=== PATIENT | female | born 1980 | race African-American/Black ===

== ENCOUNTER 2016-10-19 20:50 | Emergency (ER) | payer MEDICAID, OTHER ==
[~2016-10-19] VITALS: Ht 177.8 cm; Wt 127.0 kg
[2016-10-19] MEDS ORDERED: KETOROLAC TROMETHAMINE INJ 30 MG/ML VIAL IV ONE (22:30)
[2016-10-19] MEDS ORDERED: IV NS 0.9% 500 ML BAG IV ONE (22:30)
[2016-10-19] MEDS ORDERED: ONDANSETRON HCL/PF 4 MG/2 ML VIAL IVP ONE (22:30)
[2016-10-19] MEDS ORDERED: KETOROLAC TROMETHAMINE 15 MG/ML VIAL ONE (22:33)
[2016-10-19] MEDS ORDERED: ONDANSETRON HCL/PF 4 MG/2 ML VIAL ONE (22:33)
[2016-10-19 22:39] LABS: BASOPHILS % (AUTO) 0.2 % (0.0-2.0); DIFF TOTAL % 100 %; EOSINOPHILS % (AUTO) 0.1 % (0.0-6.0); HEMATOCRIT 42 % (33-45); HEMOGLOBIN 13.8 g/dL (11.5-14.8); LYMPHOCYTES # (AUTO) 2.1 /CMM (0.8-4.8); LYMPHOCYTES % (AUTO) 13.8 % (20.0-44.0); MEAN CORPUSCULAR HEMOGLOBIN 30 PG (26.0-33.0); MEAN CORPUSCULAR HGB CONC 33 g/dl (31.0-36.0); MEAN CORPUSCULAR VOLUME 91 fL (82-100); MONOCYTES # (AUTO) 0.6 /CMM (0.1-1.30); NEUTROPHILS # (AUTO) 12.2 /CMM (1.8-8.9); NEUTROPHILS % (AUTO) 81.9 % (43.0-81.0); PLATELET COUNT (AUTO) 196 /CMM (150-450); RED BLOOD CELL COUNT(AUTO) 4.57 MIL/uL (4.0-5.2); WHITE BLOOD COUNT (AUTO) 14.9 K/uL (4.3-11.0)
[2016-10-19 22:40] LABS: KETONES,URINE NEGATIVE (NEGATIVE); LEUKOCYTE ESTERASE ,URINE 1+ (NEGATIVE)
[2016-10-19 22:46] LABS: ADD UA MICROSCOPIC YES
[2016-10-19 22:48] LABS: CALCIUM, SERUM 8.6 mg/dL (8.5-10.1); CREATININE 0.9 mg/dL (0.6-1.3); POTASSIUM 3.6 mmol/L (3.5-5.1)
[2016-10-19 22:54] LABS: ADD URINE CULTURE YES; RBC,URINE 0-2 /HPF (0-2); WBC,URINE 81-100 /HPF (0-3)
[2016-10-19 22:55] LABS: ALBUMIN 3.3 g/dL (3.4-5.0); BILIRUBIN,DIRECT 0.1 mg/dL (0.0-0.2); BILIRUBIN,TOTAL 0.6 mg/dL (0.2-1.0); INDIRECT BILIRUBIN 0.5 mg/dL (0.0-1.1); TOTAL PROTEIN, SERUM 8.1 g/dL (6.4-8.2)
[2016-10-20] MEDS ORDERED: LEVOFLOXACIN (750 MG) 750 MG TABLET ONE (01:03)
[2016-10-20 01:09] VITALS: BP 133/70
[2016-10-20] MEDS ORDERED: LEVOFLOXACIN (750 MG) 750 MG TABLET PO SCH (01:30)
== END 2016-10-20 01:09 | disposition home or self-care (01) ==
LOC: ER 20:58
DX: N39.0 Urinary tract infection, site not specified (principal); N12 Tubulo-interstitial nephritis, not specified as acute or chronic; F17.210 Nicotine dependence, cigarettes, uncomplicated; Z88.6 Allergy status to analgesic agent
CPT/HCPCS: 36415; 80048-TC; 80076-TC; 81000-TC; 83690-TC; 84703-TC; 85025-TC; 87086-TC; 87186-TC; A4606; J1885; J2405; Z7610

== ENCOUNTER 2017-02-07 19:00 | Emergency (ER) | payer MEDICAID, OTHER ==
[~2017-02-07] VITALS: Ht 172.7 cm; Wt 136.1 kg
--- NOTE | 2017-02-07 19:25 | NUR ---
TO BED 10 A 37 YO FEMALE BIBSELF WITH C/O RIGHT FLANK PAIN X 3 MONTHS PT DENIES INJURY OR TRAUMA. PER PATIENT SHE HAD THE SAME BEFORE AND WAS DIAGNOSED WITH KIDNEY INFECTION. PATIENT IS AAOX4, AMBULATORY. AFEBRILE. VSS. NO S/S OF ACUTE DISTRESS. INITIATED COMFORT MEASURES. AWAITING FOR ER MD MICHELE.
[2017-02-07 19:57] LABS: APPEARANCE,URINE Clear (CLEAR); BILIRUBIN,URINE Negative (NEGATIVE); BLOOD, URINE Trace-intact Ery/uL (NEGATIVE); COLOR,URINE Yellow (YELLOW); KETONES,URINE Negative (NEGATIVE); LEUKOCYTE ESTERASE ,URINE Negative (NEGATIVE); NITRITE, URINE Negative (NEGATIVE); PH,URINE 5.5 (5.0-8.0); PROTEIN,URINE Negative (NEGATIVE); UGLUCOSE Negative (NEGATIVE); UROBILINOGEN,URINE 0.2 EU/dL (0.2)
[2017-02-07 20:01] LABS: PREGNANCY TEST URINE QUAL NEGATIVE (NEGATIVE)
[2017-02-07 20:11] LABS: ADD URINE CULTURE NO; BACTERIA,URINE Few /HPF (None Seen); MUCUS,URINE Moderate /LPF (None Seen); SQUAMOUS EPITHELIAL CELL,UR Moderate /HPF (None Seen); URINE AMORPHOUS URATE Few /HPF (None Seen)
--- NOTE | 2017-02-07 20:42 | NUR ---
Patient discharged to home in stable condition. Written and verbal after care instructions given. Patient verbalizes understanding of instruction. Patient is ambulatory with steady gait.
[2017-02-07 20:53] VITALS: BP 118/80
== END 2017-02-07 20:55 | disposition home or self-care (01) ==
LOC: ER 19:01
DX: M54.9 Dorsalgia, unspecified (principal); G89.29 Other chronic pain; F17.200 Nicotine dependence, unspecified, uncomplicated; Z88.6 Allergy status to analgesic agent
CPT/HCPCS: 81001; 84703; 99283; A4606; Z7610; 81000-TC

== ENCOUNTER 2017-08-07 23:45 | Emergency (ER) | payer OTHER ==
[~2017-08-07] VITALS: Ht 170.2 cm; Wt 145.1 kg
--- NOTE | 2017-08-08 | NUR ---
PT BIBSELF C/O RASH TO BUE X SUNDAY, NOW SPREAD THROUGHOUT BODY, TOOK BENADRYL W/ NO RELIEF, TAKING TRAMADOL FOR KNEE PAIN. PT AOX3 RR EVEN AND UNLABORED. NO SOB NOTED. NAD NOTED. NO NVD AT THIS TIME. PT GOWNED AND PLACED ON MONITOR. TREE INSPECTOR DEGRASSI AT BEDSIDE FOR EVAL.
[2017-08-08 00:35] LABS: BASOPHILS # (AUTO) 0.1 /CMM (0.0-0.2); BASOPHILS % (AUTO) 0.7 % (0.0-2.0); EOSINOPHILS # (AUTO) 0.1 /CMM (0.0-0.7); HEMATOCRIT 44 % (33-45); HEMOGLOBIN 14.4 g/dL (11.5-14.8); LYMPHOCYTES # (AUTO) 3.3 /CMM (0.8-4.8); LYMPHOCYTES % (AUTO) 41.8 % (20.0-44.0); MEAN CORPUSCULAR HEMOGLOBIN 30 PG (26.0-33.0); MEAN CORPUSCULAR HGB CONC 33 g/dl (31.0-36.0); MEAN CORPUSCULAR VOLUME 91 fL (82-100); MONOCYTES # (AUTO) 0.2 /CMM (0.1-1.30); MONOCYTES % (AUTO) 2.8 % (2.0-12.0); NEUTROPHILS # (AUTO) 4.2 /CMM (1.8-8.9); NEUTROPHILS % (AUTO) 53.7 % (43.0-81.0); PLATELET COUNT (AUTO) 166 /CMM (150-450); RDW COEFFICIENT OF VARIATION 14.3 (11.5-15.0); RED BLOOD CELL COUNT(AUTO) 4.85 MIL/uL (4.0-5.2); WHITE BLOOD COUNT (AUTO) 7.9 K/uL (4.3-11.0)
[2017-08-08 00:46] LABS: C-REACTIVE PROTEIN 8.5 mg/dL (0.0-0.9)
[2017-08-08 00:47] LABS: CALCIUM, SERUM 8.8 mg/dL (8.5-10.1); CREATININE 0.9 mg/dL (0.6-1.3); POTASSIUM 3.4 mmol/L (3.5-5.1)
[2017-08-08 00:53] LABS: ALBUMIN 2.9 g/dL (3.4-5.0); BILIRUBIN,TOTAL 0.4 mg/dL (0.2-1.0); TOTAL PROTEIN, SERUM 7.7 g/dL (6.4-8.2)
--- NOTE | 2017-08-08 01:07 | NUR ---
STONE CIRCULAR SAWYER DEGRASSE AT BEDSIDE SPEAKING TO PT REGARDING RESULTS.
[2017-08-08] MEDS ORDERED: predniSONE 20 MG TABLET ONE (01:16)
[2017-08-08 01:18] VITALS: BP 110/70
--- NOTE | 2017-08-08 01:18 | NUR ---
Patient discharged to home in stable condition. Written and verbal after care instructions given. Patient verbalizes understanding of instruction. ambulatory with a steady gait
[2017-08-08] MEDS ORDERED: predniSONE 20 MG TABLET PO ONE (01:30)
== END 2017-08-08 01:19 | disposition home or self-care (01) ==
LOC: ER 23:45 → EDBD 23:45 → ER 08-08 01:19
DX: I77.6 Arteritis, unspecified (principal); F10.10 Alcohol abuse, uncomplicated; F17.200 Nicotine dependence, unspecified, uncomplicated; Z88.6 Allergy status to analgesic agent
CPT/HCPCS: 36415; 80053; 85025; 85652; 86140; 99284; A4606; J7512; Z7610

== ENCOUNTER 2017-08-11 05:00 | Emergency (ER) | payer OTHER ==
[~2017-08-11] VITALS: Ht 170.2 cm; Wt 145.1 kg
--- NOTE | 2017-08-11 05:55 | NUR ---
PT AMBULATORY TO ER BED 7, PT STATES SHE WAS SEEN IN THE ER A FEW DAYS AGO FOR A SKIN RASH. PT STATES THAT THE RASH IS NOW WORSE. PT STATES THAT THE RASH MACE PT WAS GIVEN A RX FOR PREDNISONE 50MG DAILY X 4 DAYS. PT VSS/RESP EVEN UNLABORED/NAD NOTED/AOX4. AWAITING MD MICHELE.
--- NOTE | 2017-08-11 06:04 | NUR ---
AT BEDSIDE FOR EVAL.
--- NOTE | 2017-08-11 06:39 | NUR ---
LAB AT BEDSIDE.
[2017-08-11 06:47] LABS: BASOPHILS % (AUTO) 0.3 % (0.0-2.0); HEMATOCRIT 37 % (33-45); HEMOGLOBIN 12.2 g/dL (11.5-14.8); LYMPHOCYTES # (AUTO) 1.7 /CMM (0.8-4.8); LYMPHOCYTES % (AUTO) 24.2 % (20.0-44.0); MEAN CORPUSCULAR HEMOGLOBIN 30 PG (26.0-33.0); MEAN CORPUSCULAR HGB CONC 33 g/dl (31.0-36.0); MEAN CORPUSCULAR VOLUME 91 fL (82-100); MONOCYTES # (AUTO) 0.3 /CMM (0.1-1.30); MONOCYTES % (AUTO) 4.1 % (2.0-12.0); NEUTROPHILS % (AUTO) 71.4 % (43.0-81.0); PLATELET COUNT (AUTO) 197 /CMM (150-450); RDW COEFFICIENT OF VARIATION 14.4 (11.5-15.0); RED BLOOD CELL COUNT(AUTO) 4.08 MIL/uL (4.0-5.2)
[2017-08-11] MEDS ORDERED: predniSONE 20 MG TABLET PO ONE (07:00)
[2017-08-11] MEDS ORDERED: predniSONE 20 MG TABLET ONE (07:07)
--- NOTE | 2017-08-11 07:21 | NUR ---
Patient discharged to home in stable condition. Written and verbal after care instructions given. Patient verbalizes understanding of instruction. Pt ambulatory with a steady gait.
[2017-08-11 07:22] VITALS: BP 124/74
== END 2017-08-11 07:24 | disposition home or self-care (01) ==
LOC: ER 05:04
DX: I77.6 Arteritis, unspecified (principal); F17.200 Nicotine dependence, unspecified, uncomplicated; Z98.51 Tubal ligation status; Z88.6 Allergy status to analgesic agent
CPT/HCPCS: 36415; 85025; 99283; A4606; J7512; Z7610

== ENCOUNTER 2018-05-23 11:30 | Emergency (ER) | payer SELFPAY ==
[~2018-05-23] VITALS: Ht 175.3 cm; Wt 142.0 kg
[2018-05-23 11:49] VITALS: BP 137/86
[2018-05-23 12:01] LABS: APPEARANCE,URINE Clear (CLEAR); BILIRUBIN,URINE Negative (NEGATIVE); BLOOD, URINE Moderate Ery/uL (NEGATIVE); COLOR,URINE Yellow (YELLOW); KETONES,URINE Negative (NEGATIVE); LEUKOCYTE ESTERASE ,URINE Negative (NEGATIVE); NITRITE, URINE Negative (NEGATIVE); PROTEIN,URINE Negative (NEGATIVE); UGLUCOSE Negative (NEGATIVE); UROBILINOGEN,URINE 0.2 EU/dL (0.2)
[2018-05-23 12:05] LABS: BACTERIA,URINE Few /HPF (None Seen); SQUAMOUS EPITHELIAL CELL,UR Few /HPF (None Seen)
== END 2018-05-23 13:33 | disposition home or self-care (01) ==
LOC: ER 11:33
DX: J30.9 Allergic rhinitis, unspecified (principal); F10.10 Alcohol abuse, uncomplicated; F17.200 Nicotine dependence, unspecified, uncomplicated; Z88.6 Allergy status to analgesic agent; Y90.9 Presence of alcohol in blood, level not specified
CPT/HCPCS: 71045; 81001; 99285; A4606; Z7610; 81000-TC

== ENCOUNTER 2018-11-25 11:17 | Emergency (ER) | payer MEDICAID, OTHER ==
[~2018-11-25] VITALS: Ht 172.7 cm; Wt 142.9 kg
[2018-11-25 11:17] VITALS: BP 131/77
--- NOTE | 2018-11-25 11:35 | NUR ---
SEEN AND EXAMINED BY DR. STEINER.
== END 2018-11-25 11:56 | disposition home or self-care (01) ==
LOC: ER 11:22
DX: R10.84 Generalized abdominal pain (principal); F17.200 Nicotine dependence, unspecified, uncomplicated; Z98.890 Other specified postprocedural states; Z88.6 Allergy status to analgesic agent
CPT/HCPCS: Z7502

== ENCOUNTER 2019-03-30 23:53 | Emergency (ER) | payer MEDICAID ==
[~2019-03-30] VITALS: Ht 170.2 cm; Wt 145.1 kg
[2019-03-30 23:58] VITALS: BP 145/94
--- NOTE | 2019-03-30 23:58 | NUR ---
PT BIBSELF C/O BURNING/FREQUENCY/URGENCY ON URINATION X 1 WEEK. PT IS AAOX4, NOT IN RESPIRATORY DISTRESS, V/S STABLE, KEPT RESTED AND COMFORTABLE, WILL CONTINUE TO MONITOR.
--- NOTE | 2019-03-31 00:12 | NUR ---
URINE SPECIMEN COLLECTED AND SENT TO LAB.
[2019-03-31 00:49] LABS: APPEARANCE,URINE Clear (CLEAR); BILIRUBIN,URINE Negative (NEGATIVE); BLOOD, URINE Small Ery/uL (NEGATIVE); COLOR,URINE Yellow (YELLOW); KETONES,URINE Negative (NEGATIVE); LEUKOCYTE ESTERASE ,URINE Trace (NEGATIVE); NITRITE, URINE Negative (NEGATIVE); PH,URINE 5.5 (5.0-8.0); PROTEIN,URINE Negative (NEGATIVE); UGLUCOSE Negative (NEGATIVE); UROBILINOGEN,URINE 0.2 EU/dL (0.2)
[2019-03-31 01:13] LABS: BACTERIA,URINE Few /HPF (None Seen); SQUAMOUS EPITHELIAL CELL,UR Few /HPF (None Seen)
--- NOTE | 2019-03-31 01:13 | NUR ---
Patient discharged to home in stable condition. Written and verbal after care instructions given. Patient verbalizes understanding of instruction.
== END 2019-03-31 01:15 | disposition home or self-care (01) ==
LOC: ER 23:56
DX: N39.0 Urinary tract infection, site not specified (principal); F10.10 Alcohol abuse, uncomplicated; F17.200 Nicotine dependence, unspecified, uncomplicated; Y90.9 Presence of alcohol in blood, level not specified; Z88.6 Allergy status to analgesic agent; Z98.51 Tubal ligation status
CPT/HCPCS: 81000-TC; 84703-TC

== ENCOUNTER 2019-12-06 12:37 | Emergency (ER) | payer SELFPAY ==
[~2019-12-06] VITALS: Ht 170.2 cm; Wt 149.7 kg
--- NOTE | 2019-12-06 12:44 | NUR ---
BIB SELF C/O PAINFUL URINATION STARTED 4 DAYS AGO. TO ER BED 10, HOOKED TO MONITOR, CHANGED TO HOSP GOWN, WARM BLABKET PROVIDED, PATIENT AOx4 , BREATHING EVEN AND UNLABORED. AWAITING MD MICHELE.
--- NOTE | 2019-12-06 12:48 | NUR ---
URINE SPECIMEN COLLECTED AND SENT TO LAB.
--- NOTE | 2019-12-06 12:50 | NUR ---
DR RODRIGUEZ AT BEDSIDE
[2019-12-06] MEDS ORDERED: CEFTRIAXONE 500 MG VIAL IM ONE (13:30)
[2019-12-06] MEDS ORDERED: AZITHROMYCIN 250 MG TABLET PO ONE (13:30)
[2019-12-06] MEDS ORDERED: AZITHROMYCIN 250 MG TABLET ONE (13:40)
[2019-12-06] MEDS ORDERED: CEFTRIAXONE 500 MG VIAL ONE (13:40)
[2019-12-06] MEDS ORDERED: LIDOCAINE /MPF 1% VIAL 5 ML VIAL ONE (13:41)
[2019-12-06 13:51] LABS: APPEARANCE,URINE CLEAR (CLEAR); BILIRUBIN,URINE NEGATIVE (NEGATIVE); BLOOD, URINE MODERATE Ery/uL (NEGATIVE); COLOR,URINE YELLOW (YELLOW); KETONES,URINE NEGATIVE (NEGATIVE); LEUKOCYTE ESTERASE ,URINE TRACE (NEGATIVE); NITRITE, URINE POSITIVE (NEGATIVE); PROTEIN,URINE NEGATIVE (NEGATIVE); UGLUCOSE NEGATIVE (NEGATIVE); UROBILINOGEN,URINE 0.2 EU/dL (0.2)
[2019-12-06 14:06] LABS: BACTERIA,URINE Many /HPF (None Seen); RBC,URINE 0-2 /HPF (0-2); SQUAMOUS EPITHELIAL CELL,UR Few /HPF (None Seen)
[2019-12-06 14:34] VITALS: BP 121/68
--- NOTE | 2019-12-06 14:34 | NUR ---
Patient discharged to home in stable condition. Written and verbal after care instructions given. Patient verbalizes understanding of instruction.
== END 2019-12-06 14:35 | disposition home or self-care (01) ==
LOC: ER 12:40
DX: N39.0 Urinary tract infection, site not specified (principal); F17.200 Nicotine dependence, unspecified, uncomplicated; Z98.890 Other specified postprocedural states; Z88.6 Allergy status to analgesic agent
CPT/HCPCS: 81001; 87086; 87491; 87591; 96372; 99283; J0696; J3490; 81000-TC; 87186-TC

== ENCOUNTER 2020-04-20 19:16 | Emergency (ER) | payer MEDICAID ==
[~2020-04-20] VITALS: Ht 172.7 cm; Wt 145.1 kg
--- NOTE | 2020-04-20 19:38 | NUR ---
PT AAOX4. AMBULATORY WITH STEADY GAIT. BIBSELF C/O BLADDER PAIN X4 DAYS +FREQUENT URINATION. PT STATED SHE HAS A HARD TIME PEEING. PLACED ON MONITOR AND PULSE OX. AT BEDSIDE FOR EVAL. AWAITING ORDERS. URINE SENT TO LAB.
[2020-04-20] MEDS ORDERED: ACETAMINOPHEN ES 500 MG TABLET ONE (19:43)
[2020-04-20 19:44] LABS: APPEARANCE,URINE Cloudy (CLEAR); BILIRUBIN,URINE SMALL (NEGATIVE); BLOOD, URINE Moderate Ery/uL (NEGATIVE); COLOR,URINE Yellow (YELLOW); KETONES,URINE Trace (NEGATIVE); LEUKOCYTE ESTERASE ,URINE Moderate (NEGATIVE); NITRITE, URINE Positive (NEGATIVE); PH,URINE 5.5 (5.0-8.0); PROTEIN,URINE 100 mg/dl (NEGATIVE); UGLUCOSE Negative (NEGATIVE)
[2020-04-20 20:00] LABS: WBC,URINE 21-50 /HPF (0-3)
[2020-04-20] MEDS ORDERED: ACETAMINOPHEN ES 500 MG TABLET PO ONE (20:00)
[2020-04-20 20:01] LABS: BACTERIA,URINE Many /HPF (None Seen); SQUAMOUS EPITHELIAL CELL,UR Few /HPF (None Seen)
[2020-04-20] MEDS ORDERED: CEPHALEXIN MONOHYDRATE 500 MG CAPSULE PO ONE ×2 (20:14→20:30)
--- NOTE | 2020-04-20 20:21 | NUR ---
Patient discharged to home in stable condition. Written and verbal after care instructions given. Patient verbalizes understanding of instruction and RX. Pt ambualted with steady gait. vss.
[2020-04-20 20:22] VITALS: BP 110/72
== END 2020-04-20 20:23 | disposition home or self-care (01) ==
LOC: ER 19:20
DX: N39.0 Urinary tract infection, site not specified (principal); E66.01 Morbid (severe) obesity due to excess calories; Z68.42 Body mass index [BMI] 45.0-49.9, adult; Z98.51 Tubal ligation status; Z88.6 Allergy status to analgesic agent
CPT/HCPCS: 81000-TC; 87086-TC; 87186-TC

== ENCOUNTER 2021-09-10 15:45 | Emergency (ER) | payer MEDICAID, OTHER ==
[~2021-09-10] VITALS: Ht 170.2 cm; Wt 154.2 kg
[2021-09-10 15:58] VITALS: BP 118/68
[2021-09-10] MEDS ORDERED: DIPHENHYDRAMINE HCL 12.5 MG/5 ML UDC PO ONE (16:30)
[2021-09-10] MEDS ORDERED: predniSONE 20 MG TABLET PO ONE (16:30)
[2021-09-10] MEDS ORDERED: FAMOTIDINE (20 MG) 20 MG TABLET PO ONE (16:30)
[2021-09-10] MEDS ORDERED: predniSONE 20 MG TABLET ONE (16:43)
[2021-09-10] MEDS ORDERED: FAMOTIDINE (20 MG) 20 MG TABLET ONE (16:43)
[2021-09-10] MEDS ORDERED: diphenhydrAMINE HCL 25 MG CAPSULE ONE (16:43)
[2021-09-10 16:46] LABS: BILIRUBIN,URINE NEGATIVE (NEGATIVE); COLOR,URINE YELLOW (YELLOW); LEUKOCYTE ESTERASE ,URINE NEGATIVE (NEGATIVE); NITRITE, URINE NEGATIVE (NEGATIVE); PROTEIN,URINE NEGATIVE (NEGATIVE); UGLUCOSE NEGATIVE (NEGATIVE); UROBILINOGEN,URINE 0.2 EU/dL (0.2)
[2021-09-10 16:57] LABS: BACTERIA,URINE Few /HPF (None Seen); SQUAMOUS EPITHELIAL CELL,UR Few /HPF (None Seen); WBC,URINE 0-2 /HPF (0-3)
[2021-09-10] MEDS ORDERED: PRED20TA PO (17:30)
[2021-09-10] MEDS ORDERED: FAMO-131 PO (17:30)
[2021-09-10] MEDS ORDERED: DIPH25CA83 PO (17:30)
== END 2021-09-10 17:59 | disposition home or self-care (01) ==
LOC: ER 16:25
DX: R21 Rash and other nonspecific skin eruption (principal); Z88.6 Allergy status to analgesic agent
CPT/HCPCS: 81001; 84703; 99284; J7512; Q0163 ×2

== ENCOUNTER 2022-07-21 06:09 | Emergency (ER) | payer MEDICAID ==
[~2022-07-21] VITALS: Ht 180.3 cm; Wt 154.2 kg
[~2022-07-21 06:09] MED LIST: DIPH25CA83 PO; FAMO-131 PO; PRED20TA PO
--- NOTE | 2022-07-21 06:42 | NUR ---
PATIENT BIBSELF C/O RIGHT SIDED FLANK PAIN FOR THE PAST WEEK AND A HALF. PATIENT VSS, PATIENT IS AFEBRILE. PATIENT TO ER BED 12, NO ACUTE DISTRESS NOTED.
--- NOTE | 2022-07-21 06:57 | NUR ---
RAC #[id number] S/L BLOOD COLLECTED AND SENT TO LAB
[2022-07-21] MEDS: IV NS 0.9% 1,000 ML BAG IV ONE (07:03)
--- NOTE | 2022-07-21 07:09 | NUR ---
US TECH AT PT'S BEDSIDE
[2022-07-21 07:30] LABS: BASOPHILS # (AUTO) 0.1 K/uL (0.0-0.2); BILIRUBIN,URINE NEGATIVE (NEGATIVE); COLOR,URINE YELLOW (YELLOW); EOSINOPHILS % (AUTO) 1.3 % (0.0-6.0); HEMATOCRIT 41 % (33-45); HEMOGLOBIN 13.6 g/dL (11.5-14.8); LEUKOCYTE ESTERASE ,URINE NEGATIVE (NEGATIVE); LYMPHOCYTES # (AUTO) 3.9 K/uL (0.8-4.8); MEAN CORPUSCULAR HGB CONC 33 g/dl (31.0-36.0); MEAN CORPUSCULAR VOLUME 92 fL (82-100); MONOCYTES # (AUTO) 0.6 K/uL (0.1-1.30); MONOCYTES % (AUTO) 7.4 % (2.0-12.0); NEUTROPHILS # (AUTO) 3.9 K/uL (1.8-8.9); NEUTROPHILS % (AUTO) 45.3 % (43.0-81.0); NITRITE, URINE NEGATIVE (NEGATIVE); PLATELET COUNT (AUTO) 217 K/uL (150-450); PROTEIN,URINE NEGATIVE (NEGATIVE); RED BLOOD CELL COUNT(AUTO) 4.52 MIL/uL (4.0-5.2); UGLUCOSE NEGATIVE (NEGATIVE); UROBILINOGEN,URINE 0.2 EU/dL (0.2); WHITE BLOOD COUNT (AUTO) 8.7 K/uL (4.3-11.0)
[2022-07-21 07:37] LABS: CALCIUM, SERUM 8.7 mg/dL (8.5-10.1); CREATININE 0.9 mg/dL (0.6-1.3); POTASSIUM 3.8 mmol/L (3.5-5.1)
[2022-07-21 07:43] LABS: ALBUMIN 3.4 g/dL (3.4-5.0); BILIRUBIN,DIRECT 0.1 mg/dL (0.0-0.2); BILIRUBIN,TOTAL 0.3 mg/dL (0.2-1.0); TOTAL PROTEIN, SERUM 8.5 g/dL (6.4-8.2)
[2022-07-21] MEDS: KETOROLAC TROMETHAMINE INJ 30 MG/ML VIAL IV ONE (08:05)
[2022-07-21 08:08] LABS: BACTERIA,URINE Few /HPF (None Seen); RBC,URINE 0-2 /HPF (0-2); SQUAMOUS EPITHELIAL CELL,UR Few /HPF (None Seen); WBC,URINE 0-2 /HPF (0-3)
[2022-07-21] MEDS ORDERED: IBUP-1955 PO (08:09)
--- NOTE | 2022-07-21 08:15 | NUR ---
IV removed. Catheter intact and site benign. Pressure and 4x4 applied to site. No bleeding noted.Patient discharged to home in stable condition. Written and verbal after care instructions given. Patient verbalizes understanding of instruction.
[2022-07-21 08:18] VITALS: BP 142/84
== END 2022-07-21 08:19 | disposition home or self-care (01) ==
LOC: ER 06:12
DX: R10.11 Right upper quadrant pain (principal); F17.200 Nicotine dependence, unspecified, uncomplicated; Z87.440 Personal history of urinary (tract) infections; Z88.8 Allergy status to other drugs, medicaments and biological substances; Z79.899 Other long term (current) drug therapy
CPT/HCPCS: 99284; 96360; 76705; 85025; 80048; 83690; 80076; 84703; 81001; 36415; J7030

== ENCOUNTER 2022-07-28 15:23 | Emergency (ER) | payer MEDICAID ==
[~2022-07-28] VITALS: Ht 170.2 cm; Wt 136.1 kg
[~2022-07-28 15:23] MED LIST changes: +IBUP-1955 PO
--- NOTE | 2022-07-28 15:55 | NUR ---
URINE COLLECTED AND SENT TO LAB
[2022-07-28 17:05] LABS: BILIRUBIN,URINE NEGATIVE (NEGATIVE); COLOR,URINE YELLOW (YELLOW); LEUKOCYTE ESTERASE ,URINE NEGATIVE (NEGATIVE); NITRITE, URINE NEGATIVE (NEGATIVE); PROTEIN,URINE NEGATIVE (NEGATIVE); UGLUCOSE NEGATIVE (NEGATIVE); UROBILINOGEN,URINE 0.2 EU/dL (0.2)
[2022-07-28] MEDS ORDERED: CYCL10TA9 PO (19:21)
[2022-07-28] MEDS ORDERED: IBUP-1955 PO (19:21)
[2022-07-28 19:38] VITALS: BP 127/81
--- NOTE | 2022-07-28 19:38 | NUR ---
Patient discharged to home in stable condition. RX Written and verbal after care instructions given. Patient verbalizes understanding of instruction. pt ambulatory with a steady gait
== END 2022-07-28 19:39 | disposition home or self-care (01) ==
LOC: ER 15:30
DX: R10.11 Right upper quadrant pain (principal); R94.8 Abnormal results of function studies of other organs and systems; F17.200 Nicotine dependence, unspecified, uncomplicated; Z98.890 Other specified postprocedural states; Z88.6 Allergy status to analgesic agent; Z79.899 Other long term (current) drug therapy

== ENCOUNTER 2022-08-29 22:03 | Emergency (ER) | payer MEDICAID ==
[~2022-08-29] VITALS: Ht 170.2 cm; Wt 154.2 kg
[~2022-08-29 22:03] MED LIST changes: +CYCL10TA9 PO
--- NOTE | 2022-08-29 23:10 | NUR ---
TO ER BED 10. BIBS FOR C/O R FLANK PAIN X 3 DAYS. -HEMATURI, DYSURIA, FEVER OR CHILLS. PT IS ALERT AND ORIENTED. RR EVEN AND NONLABORED. CONNECTED TO POX AND HEART MONITOR. AWAITING MD MICHELE
--- NOTE | 2022-08-29 23:17 | NUR ---
URINE SENT TO LAB
--- NOTE | 2022-08-29 23:26 | NUR ---
BLOOD COLLECTED AND SENT TO LAB
[2022-08-29] MEDS ORDERED: MORPHINE SULFATE INJ 4 MG/ML DISP.SYRIN ONE (23:27)
[2022-08-29] MEDS ORDERED: ONDANSETRON HCL/PF 4 MG/2 ML VIAL ONE (23:27)
[2022-08-29] MEDS ORDERED: IV NS 0.9% 1,000 ML BAG IV ONE (23:30)
[2022-08-29] MEDS ORDERED: MORPHINE SULFATE INJ 2 MG/ML DISP.SYRIN IV ONE (23:30)
[2022-08-29] MEDS ORDERED: ONDANSETRON HCL/PF 4 MG/2 ML VIAL IVP ONE (23:30)
[2022-08-29 23:39] LABS: BASOPHILS # (AUTO) 0.1 K/uL (0.0-0.2); EOSINOPHILS % (AUTO) 2.5 % (0.0-6.0); HEMATOCRIT 42 % (33-45); HEMOGLOBIN 13.6 g/dL (11.5-14.8); LYMPHOCYTES # (AUTO) 2.9 K/uL (0.8-4.8); LYMPHOCYTES % (AUTO) 31.1 % (20.0-44.0); MEAN CORPUSCULAR HGB CONC 32 g/dl (31.0-36.0); MEAN CORPUSCULAR VOLUME 92 fL (82-100); MONOCYTES # (AUTO) 0.5 K/uL (0.1-1.30); MONOCYTES % (AUTO) 5.7 % (2.0-12.0); NEUTROPHILS # (AUTO) 5.6 K/uL (1.8-8.9); NEUTROPHILS % (AUTO) 59.7 % (43.0-81.0); PLATELET COUNT (AUTO) 206 K/uL (150-450); RED BLOOD CELL COUNT(AUTO) 4.55 MIL/uL (4.0-5.2); WHITE BLOOD COUNT (AUTO) 9.3 K/uL (4.3-11.0)
--- NOTE | 2022-08-29 23:44 | NUR ---
PT TAKEN TO CT VIA JORGE
[2022-08-29 23:52] LABS: ALANINE AMINOTRANSFERASE 18 U/L (12-78); ALBUMIN 3.2 g/dL (3.4-5.0); ALKALINE PHOSPHATASE 94 U/L (46-116); ASPARTATE AMINOTRANSFERASE 12 U/L (15-37); BILIRUBIN,DIRECT 0.1 mg/dL (0.0-0.2); BILIRUBIN,TOTAL 0.3 mg/dL (0.2-1.0); CALCIUM, SERUM 8.5 mg/dL (8.5-10.1); CARBON DIOXIDE 31 mmol/L (21-32); CHLORIDE 103 mmol/L (98-107); CREATININE 0.9 mg/dL (0.6-1.3); GLUCOSE 71 mg/dL (74-106); LIPASE 105 U/L (73-393); POTASSIUM 3.3 mmol/L (3.5-5.1); SODIUM SERUM 139 mmol/L (136-145); UREA NITROGEN, BLOOD 15 mg/dL (7-18)
--- NOTE | 2022-08-30 00:12 | NUR ---
US TECH AT PT'S BEDSIDE
[2022-08-30 00:17] LABS: BILIRUBIN,URINE NEGATIVE (NEGATIVE); COLOR,URINE YELLOW (YELLOW); LEUKOCYTE ESTERASE ,URINE NEGATIVE (NEGATIVE); NITRITE, URINE NEGATIVE (NEGATIVE); PROTEIN,URINE NEGATIVE (NEGATIVE); UGLUCOSE NEGATIVE (NEGATIVE); UROBILINOGEN,URINE 0.2 EU/dL (0.2)
--- NOTE | 2022-08-30 01:32 | NUR ---
SOFTWARE VALIDATION TECHNICIAN AT PT'S BEDSIDE FOR TROP
--- NOTE | 2022-08-30 02:41 | NUR ---
Patient discharged to home in stable condition. Written and verbal after care instructions given. Patient verbalizes understanding of instruction. IV removed. Catheter intact and site benign. Pressure and 4x4 applied to site. No bleeding noted.
[2022-08-30 03:50] VITALS: BP 110/71
== END 2022-08-30 02:45 | disposition home or self-care (01) ==
LOC: ER 22:08
DX: R10.11 Right upper quadrant pain (principal); Z88.6 Allergy status to analgesic agent; F17.200 Nicotine dependence, unspecified, uncomplicated
CPT/HCPCS: 99285; 74176; 96374; 76705; 96361; 96375; 93005; 85025; 80048; 83690; 80076; 81003; 36415 ×2; 84484 ×2; 85730; J2270; J2405

== ENCOUNTER 2024-01-08 00:31 | Emergency (ER) | payer MEDICAID, OTHER ==
[~2024-01-08] VITALS: Ht 180.3 cm; Wt 140.6 kg
[2024-01-08 01:30] LABS: APPEARANCE,URINE CLEAR (CLEAR); BILIRUBIN,URINE NEGATIVE (NEGATIVE); BLOOD, URINE TRACE-INTA Ery/uL (NEGATIVE); COLOR,URINE YELLOW (YELLOW); KETONES,URINE NEGATIVE (NEGATIVE); LEUKOCYTE ESTERASE ,URINE TRACE (NEGATIVE); NITRITE, URINE NEGATIVE (NEGATIVE); PROTEIN,URINE NEGATIVE (NEGATIVE); UGLUCOSE NEGATIVE (NEGATIVE)
[2024-01-08 02:04] LABS: ADD URINE CULTURE NO; BACTERIA,URINE 1+ /HPF (None Seen)
[2024-01-08] MEDS ORDERED: NITR100C6 PO (02:12)
[2024-01-08 02:14] LABS: PREGNANCY TEST URINE QUAL NEGATIVE (NEGATIVE)
[2024-01-08 02:23] VITALS: BP 154/81; TEMP 97.3; O2SAT 98
== END 2024-01-08 02:23 | disposition home or self-care (01) ==
LOC: ER 00:36
DX: N39.0 Urinary tract infection, site not specified (principal); B96.89 Other specified bacterial agents as the cause of diseases classified elsewhere; Z88.8 Allergy status to other drugs, medicaments and biological substances
CPT/HCPCS: 81001; 84703-TC

== ENCOUNTER 2024-08-20 07:52 | Emergency (ER) | payer OTHER ==
[~2024-08-20] VITALS: Ht 172.7 cm; Wt 142.9 kg
[~2024-08-20 07:52] MED LIST changes: +NITR100C6 PO
[2024-08-20 08:24] VITALS: TEMP 98.1
[2024-08-20 08:35] LABS: BASOPHILS # (AUTO) 0.1 K/uL (0.0-0.2); BASOPHILS % (AUTO) 0.9 % (0.0-2.0); EOSINOPHILS # (AUTO) 0.1 K/uL (0.0-0.7); EOSINOPHILS % (AUTO) 1.7 % (0.0-6.0); HEMATOCRIT 43 % (33-45); HEMOGLOBIN 14.4 g/dL (11.5-14.8); LYMPHOCYTES # (AUTO) 3.2 K/uL (0.8-4.8); LYMPHOCYTES % (AUTO) 41.7 % (20.0-44.0); MEAN CORPUSCULAR HEMOGLOBIN 31 PG (26.0-33.0); MEAN CORPUSCULAR HGB CONC 33 g/dl (31.0-36.0); MEAN CORPUSCULAR VOLUME 94 fL (82-100); MONOCYTES # (AUTO) 0.6 K/uL (0.1-1.30); MONOCYTES % (AUTO) 8.2 % (2.0-12.0); NEUTROPHILS # (AUTO) 3.7 K/uL (1.8-8.9); NEUTROPHILS % (AUTO) 47.5 % (43.0-81.0); PLATELET COUNT (AUTO) 205 K/uL (150-450); RED CELL DISTRIBUTION WIDTH 14.2 % (11.5-15.0); WHITE BLOOD COUNT (AUTO) 7.7 K/uL (4.3-11.0)
[2024-08-20 08:39] LABS: APPEARANCE,URINE CLEAR (CLEAR); BILIRUBIN,URINE NEGATIVE (NEGATIVE); BLOOD, URINE NEGATIVE Ery/uL (NEGATIVE); COLOR,URINE YELLOW (YELLOW); KETONES,URINE NEGATIVE (NEGATIVE); LEUKOCYTE ESTERASE ,URINE NEGATIVE (NEGATIVE); NITRITE, URINE NEGATIVE (NEGATIVE); PROTEIN,URINE NEGATIVE (NEGATIVE); UGLUCOSE NEGATIVE (NEGATIVE); UROBILINOGEN,URINE 0.2 EU/dL (0.2)
[2024-08-20 08:40] LABS: PREGNANCY TEST URINE QUAL NEGATIVE (NEGATIVE)
[2024-08-20] MEDS: IV NS 0.9% 1,000 ML BAG IV ONE (08:45)
[2024-08-20 08:50] LABS: CALCIUM, SERUM 9.2 mg/dL (8.5-10.1); CREATININE 0.8 mg/dL (0.6-1.3); POTASSIUM 3.5 mmol/L (3.5-5.1)
[2024-08-20 08:52] LABS: ALBUMIN 3.5 g/dL (3.4-5.0); BILIRUBIN,DIRECT 0.1 mg/dL (0.0-0.2); BILIRUBIN,TOTAL 0.2 mg/dL (0.2-1.0); TOTAL PROTEIN, SERUM 8.2 g/dL (6.4-8.2)
[2024-08-20] MEDS ORDERED: HYDR-4303 PO (10:08)
[2024-08-20] MEDS ORDERED: LIDO30AD10 TP (10:08)
[2024-08-20] MEDS ORDERED: CYCL5TAB PO (10:08)
[2024-08-20 10:25] VITALS: BP 122/80; O2SAT 100
== END 2024-08-20 11:24 | disposition left against medical advice (07) ==
LOC: ER 07:55
DX: G89.29 Other chronic pain (principal); M54.6 Pain in thoracic spine; R10.2 Pelvic and perineal pain; F17.200 Nicotine dependence, unspecified, uncomplicated; Z79.1 Long term (current) use of non-steroidal anti-inflammatories (NSAID); Z79.52 Long term (current) use of systemic steroids; Z87.440 Personal history of urinary (tract) infections; Z88.6 Allergy status to analgesic agent
CPT/HCPCS: 99284; 74176; 96360; 76705; 96361; 85025; 80048; 83690; 80076; 84703; 81003; 36415; J7030

== ENCOUNTER 2024-12-02 10:43 | Emergency (ER) | payer OTHER ==
[~2024-12-02] VITALS: Ht 170.2 cm; Wt 145.1 kg
[~2024-12-02 10:43] MED LIST changes: +CYCL5TAB PO; +HYDR-4303 PO; +LIDO30AD10 TP
[2024-12-02 10:51] VITALS: BP 146/86; TEMP 98.3
[2024-12-02 11:12] VITALS: O2SAT 100
== END 2024-12-02 11:13 | disposition home or self-care (01) ==
LOC: ER 10:51
DX: G57.11 Meralgia paresthetica, right lower limb (principal); F17.200 Nicotine dependence, unspecified, uncomplicated; G89.29 Other chronic pain; Z79.1 Long term (current) use of non-steroidal anti-inflammatories (NSAID); Z79.52 Long term (current) use of systemic steroids; Z88.6 Allergy status to analgesic agent; Z98.51 Tubal ligation status
CPT/HCPCS: 82962-TC